=== PATIENT | female | born 1985 | race American Indian/Alaskan Native ===

== ENCOUNTER 2021-10-02 18:50 | Emergency (ER) | payer MEDICAID ==
[2021-10-03] MEDS ORDERED: KETOROLAC 60 MG/2 ML INJ IM STA (05:25)
[2021-10-03] MEDS ORDERED: oxyCODONE /ACETAMINOPHEN 5-325MG TAB PO ONE (05:28)
[2021-10-03] MEDS ORDERED: LIDOCAINE-MPF (1%) 10 MG/1 ML VIAL 5 ML INFILTRATI ONE (05:28)
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
[2021-10-03] MEDS ORDERED: TETANUS,DIPH,PERTUSS(ACELL) VACCINE 0.5 ML SYRINGE IM ONE (06:01)
[2021-10-03 07:34] VITALS: BP 110/60
== END 2021-10-03 07:20 | disposition home or self-care (01) ==
LOC: ED 18:50
DX: T14.90XA Injury, unspecified, initial encounter (principal); Z91.040 Latex allergy status; W50.3XXA Accidental bite by another person, initial encounter; Y93.89 Activity, other specified; Y92.89 Other specified places as the place of occurrence of the external cause; Y99.8 Other external cause status
CPT/HCPCS: 90471; 90715; 96372; 99283; J0696; J1885; J3490